=== PATIENT | female | born 1960 | race Caucasian/White ===

== ENCOUNTER 2017-03-10 06:09 | Emergency (ER) | payer MEDICAID ==
[2017-03-10] MEDS ORDERED: ASPIRIN 81 MG CHEWABLE TABLET PO ONE (06:23)
--- NOTE | 2017-03-10 06:30 | Emergency Department Record ---
History of Present Illness - General Source: Patient Mode of Arrival: Ambulatory Limitations: No limitations - History of Present Illness Initial Comments: 56 yo female presents to ED for evaluation of chest pain symptoms that began approximately 4 hours ago. Patient reports that her pain symptoms are in the mid-chest, denies DALILA. Patient denies history of heart or lung problems, reports a history of HTN and DM. Patient reports that her last stress test was in 2012. MD Complaint: Chest pain Onset/Timin -: Hour(s) Onset: Awoke with symptoms, During rest Pain Location: Substernal Severity scale (1-10): 8 Consistency: Constant Improves With: Nothing Worsens With: Nothing Treatments Prior to Arrival: None - Related Data On Oral Contraceptives: No <JOIE MCKOY - Last Filed: 03/10/17 07:02> <Radha Byrne - Last Filed: 03/10/17 12:55> - General Chief Complaint: Chest Pain Stated Complaint: CHEST PAIN Time Seen by Provider: 03/10/17 06:22 - Related Data Home Medications Medication Instructions Recorded Confirmed Last Taken Metformin HCl [Metformin HCl] 500 mg PO BID 03/10/17 03/10/17 Unknown Pantoprazole Sodium [Protonix] 40 mg PO BID 03/10/17 03/10/17 Unknown Allergies Allergy/AdvReac Type Severity Reaction Status Date / Time Penicillins Allergy Unknown HIVES Unverified 11/12/15 19:53 cephalexin monohydrate AdvReac Mild NAUSEA AND Unverified 11/12/15 19:53 [From Keflex] VOMITING propoxyphene HCl AdvReac Mild NAUSEA AND Unverified 11/12/15 19:53 [From Darvon] VOMITING codeine AdvReac Unknown NAUSEA AND Unverified 11/12/15 19:53 VOMITING levofloxacin [From LEVAQUIN] AdvReac Unknown NAUSEA AND Unverified 11/12/15 19: 53 VOMITING Sulfa (Sulfonamide AdvReac Unknown ABDOMINAL Unverified 11/12/15 19:53 Antibiotics) PAIN Travel Screening - Travel/Exposure Within Last 30 Days Have you traveled within the last 30 days?: No <JOIE MCKOY - Last Filed: 03/10/17 07:02> Review of Systems Constitutional: Denies: Chills, Fever, Malaise, Night sweats Eyes: Denies: Eye discharge, Eye pain ENT: Denies: Congestion, Ear pain, Epistaxis Respiratory: Denies: Cough, Dyspnea Cardiovascular: Reports: Chest pain. Denies: Dyspnea on exertion Endocrine: Denies: Fatigue, Heat or cold intolerance Gastrointestinal: Denies: Abdominal pain, Nausea, Vomiting Genitourinary: Denies: Incontinence, Retention Musculoskeletal: Denies: Arthralgia, Back pain, Gout, Joint swelling Skin: Denies: Bruising, Change in color Neurological: Denies: Abnormal gait, Confusion, Headache, Seizure Psychiatric: Denies: Anxiety Hematological/Lymphatic: Denies: Anemia, Blood Clots <EANJOIE - Last Filed: 03/10/17 07:02> Past Medical History - SOCIAL HISTORY Smoking Status: Never smoker Alcohol Use: None Drug Use: None - RESPIRATORY Hx Respiratory Disorders: No - CARDIOVASCULAR Hx Cardio Disorders: Yes Hx Hypertension: Yes - NEURO Hx Neuro Disorders: No - GI Hx GI Disorders: Yes Hx Reflux: Yes - Hx Genitourinary Disorders: No - ENDOCRINE Hx Endocrine Disorders: Yes Hx Diabetes: Yes (DM2) - MUSCULOSKELETAL Hx Musculoskeletal Disorders: Yes Hx Arthritis: Yes - PSYCH Hx Psych Problems: No - HEMATOLOGY/ONCOLOGY Hx Hematology/Oncology Disorders: No <EANMIROSLAVAJOIE - Last Filed: 03/10/17 07:02> Family Medical History Any Significant Family History?: Yes Hx Cancer: Mother, Brother/Sister Hx Diabetes: Mother Hx HTN: Father, Mother, Brother/Sister <JOIE MCKOY - Last Filed: 03/10/17 07:02> Physical Exam - General General Appearance: Alert, Oriented x3, Cooperative, Mild distress Limitations: No limitations - Head Head exam: Atraumatic, Normocephalic, Normal inspection Head exam detail: negative: Abrasion, Contusion, Villareal's sign, General tenderness, Hematoma, Laceration - Eye Eye exam: Normal appearance. negative: Conjunctival injection, Periorbital swelling, Periorbital tenderness, Scleral icterus - ENT Ear exam: negative: Auricular hematoma, Auricular trauma Nasal Exam: negative: Active bleeding, Discharge, Dried blood, Foreign body Mouth exam: negative: Drooling, Laceration, Muffled voice, Tongue elevation - Neck Neck exam: Normal inspection. negative: Meningismus, Tenderness - Respiratory Respiratory exam: Normal lung sounds bilaterally. negative: Rales, Respiratory distress, Rhonchi, Stridor - Cardiovascular Cardiovascular Exam: Regular rate, Normal rhythm, Normal heart sounds - GI/Abdominal GI/Abdominal exam: Soft. negative: Rebound, Rigid, Tenderness - Rectal Rectal exam: Deferred - exam: Deferred - Extremities Extremities exam: Normal inspection. negative: Calf tenderness, Pedal edema, Tenderness - Back Back exam: Denies: CVA tenderness (R), CVA tenderness (L) - Neurological Neurological exam: Alert, Normal gait, Oriented X3 - Psychiatric Psychiatric exam: Normal affect, Normal mood - Skin Skin exam: Normal color. negative: Abrasion Type of lesion: negative: abrasion <JOIE MCKOY - Last Filed: 03/10/17 07:02> Course - Reevaluation(s) Reevaluation #1: 03/10/17 06:36 EKG: NSR 85 Normal axis, normal intervals Non-specific ST-T wave changes V1-V2 No significant change from 01/01/12 Reevaluation #2: 03/10/17 06:52 CXR: No acute process Reevaluation #3: 03/10/17 07:02 Labs reviewed and are grossly unremarkable for an acute process. <JOIE MCKOY - Last Filed: 03/10/17 07:02> Vital Signs 03/10/17 03/10/17 03/10/17 06:23 07:00 07:02 Temperature 98.2 F Pulse Rate 93 H Pulse Rate [ 88 Pulse Ox Probe] Respiratory 18 14 Rate Blood Pressure 119/73 124/64 [Left Arm] Pulse Ox 97 90 L 97 03/10/17 03/10/17 03/10/17 07:30 08:00 08:30 Temperature Pulse Rate Pulse Rate [ 80 84 84 Pulse Ox Probe] Respiratory 16 16 16 Rate Blood Pressure 107/48 112/54 111/52 [Left Arm] Pulse Ox 99 98 98 03/10/17 03/10/17 03/10/17 09:00 09:30 10:00 Temperature Pulse Rate Pulse Rate [ 98 H 86 86 Pulse Ox Probe] Respiratory 16 Rate Blood Pressure 126/55 111/51 95/48 [Left Arm] Pulse Ox 99 03/10/17 03/10/17 03/10/17 10:30 11:00 12:00 Temperature Pulse Rate Pulse Rate [ 86 89 81 Pulse Ox Probe] Respiratory 16 Rate Blood Pressure 109/55 118/56 111/58 [Left Arm] Pulse Ox - Reevaluation(s) Reevaluation #4: 03/10/17 12:51 pt did well . chest pain is gone. pt did have nausea and vomited once. pt d/w dr ortiz who is going to do a stress test this afternoon <Radha Byrne - Last Filed: 03/10/17 12:55> Medical Decision Making - Lab Data Result diagrams: 03/10/17 06:30 03/10/17 06:30 <JOIE MCKOY - Last Filed: 03/10/17 07:02> - Lab Data Result diagrams: 03/10/17 06:30 03/10/17 06:30 Lab Results 03/10/17 03/10/17 03/10/17 Range/Units 06:30 06:30 10:38 WBC 13.2 H (4.2-12.2) K/uL RBC 4.39 (3.80-5.40) M/uL Hgb 11.1 L (11.6-16.0) gm/dl Hct 35.1 (35.0-47.0) % MCV 80.0 L (81-97) fl MCH 25.2 L (27-33) pg MCHC 31.6 L (32-36) g/dl RDW 16.9 H (11.5-14.5) % Plt Count 483 H (130-400) K/uL MPV 8.9 (7.4-10.4) fl Neutrophils % 84.0 H (47-80) % Band Neutrophils % 0.0 (0-5) % Eosinophils % Not Reportable Basophils % Not Reportable Lymphocytes 8.0 L (16-45) % Monocytes 8.0 (0-9) % Basophils 0.0 (0-6) % Eosinophil Count 0.0 (0-6) % Sodium 141 (136-145) mmol/L Potassium 3.6 (3.4-4.5) mmol/L Chloride 98 (98-107) mmol/L Carbon Dioxide 28.0 (22-29) mmol/L Anion Gap 15.0 (7-16) BUN 24 H (6-20) mg/dL Creatinine 0.8 (0.5-0.9) mg/dL Estimated GFR > 60 mL/min Random Glucose 113 H (74-109) mg/dL Calcium 9.5 (8.6-10.0) mg/dL Total Bilirubin 0.30 (0.2-1.0) mg/dL AST 24 (10.0-35.0) U/L ALT 17 (<33) U/L Alkaline Phosphatase 77 (35-104) U/L Creatine Kinase 60 (26-192) U/L CK-MB (CK-2) 1.1 (<3.77) ng/mL Troponin T < 0.010 < 0.010 (0-0.010) ng/mL Total Protein 7.5 (6.6-8.7) g/dL Albumin 4.3 (4.0-5.0) g/dL Globulin 3.2 (1.4-4.8) gm/dL Albumin/Globulin Ratio 1.3 (1.1-1.8) <Radha Byrne - Last Filed: 03/10/17 12:55> Disposition <JOIE MCKOY - Last Filed: 03/10/17 07:02> Disposition: Discharge <Radha Byrne Last Filed: 03/10/17 12:55> Clinical Impression: Chest pain Qualifiers: Chest pain type: unspecified Qualified Code(s): R07.9 - Chest pain, unspecified Disposition: Home, Self-Care Condition: (1) Good Instructions: Chest Pain (ED) Additional Instructions: go directly for stress test Forms: Patient Portal Access Quality - Blood Pressure Screening Does Patient Have Any of the Following: No Blood Pressure Classification: Normal BP Reading Systolic Measurement: 119 Diastolic Measurement: 73 Screening for High Blood Pressure: < Normal BP, F/U Not Required > [G8783] <JOIE MCKOY - Last Filed: 03/10/17 07:02> - Quality Measures Quality Measures: N/A - Blood Pressure Screening Does Patient Have Any of the Following: No Blood Pressure Classification: Normal BP Reading Systolic Measurement: 111 Diastolic Measurement: 58 Screening for High Blood Pressure: < Normal BP, F/U Not Required > [G8783] <Radha Byrne Last Filed: 03/10/17 12:55>
[2017-03-10] MEDS ORDERED: MAGNESIUM HYDROXIDE/AL HYDROX 30 ML, LIDOCAINE VISC 2% 200 MG PO ONE ×2 (06:31)
[2017-03-10 06:43] LABS: HEMATOCRIT 35.1 % (35.0-47.0); HEMOGLOBIN 11.1 gm/dl (11.6-16.0); MEAN CORPUSCULAR HGB CONC 31.6 g/dl (32-36); MEAN PLATELET VOLUME 8.9 fl (7.4-10.4); PLATELET COUNT 483 K/uL (130-400); RED BLOOD COUNT 4.39 M/uL (3.80-5.40); RED CELL DISTRIBUTION WIDTH 16.9 % (11.5-14.5); WHITE BLOOD COUNT W/O DIFF 13.2 K/uL (4.2-12.2)
[2017-03-10 06:45] LABS: MEAN CORPUSCULAR HEMOGLOBIN 25.2 pg (27-33)
[2017-03-10 06:53] LABS: BLOOD UREA NITROGEN 24 mg/dL (6-20); CREATININE 0.8 mg/dL (0.5-0.9); EST GLOMERULAR FILTRATION RATE > 60 mL/min
[2017-03-10 06:54] LABS: TOTAL PROTEIN 7.5 g/dL (6.6-8.7)
[2017-03-10 06:56] LABS: GLUCOSE,RANDOM 113 mg/dL (74-109)
[2017-03-10 06:59] LABS: ALB/GLOB RATIO 1.3 (1.1-1.8); ALBUMIN 4.3 g/dL (4.0-5.0); ALKALINE PHOSPHATASE 77 U/L (35-104); ALT/SGPT 17 U/L (<33); AST/SGOT 24 U/L (10.0-35.0)
--- NOTE | 2017-03-10 10:21 | RADIOLOGY REPORT ---
EXAM: CHEST, TWO VIEWS HISTORY: CHEST PAIN IN THE MID CHEST. TECHNIQUE: PA and lateral views of the chest were obtained. Comparison: Two view chest 01/01/12. FINDINGS: The heart size is normal. Mild torsion of the aorta. New postop change left shoulder with a reverse type left should arthroplasty. No definite acute infiltrate is seen and no pleural effusion or pneumothorax evident. Mild spurring in the spine. IMPRESSION: 1. REVERSE TYPE LEFT SHOULDER ARTHROPLASTY. 2. MILD TORSION OF THE AORTA. 3. NO ACUTE INFILTRATE IDENTIFIED. JOB NUMBER: [id number] [facility]
[2017-03-10] MEDS ORDERED: PROMETHAZINE HCL 12.5 MG in 0.9 % SODIUM CHLORIDE 100ML 100 ML IVPB ONE (10:48)
[2017-03-10 11:09] LABS: CREATINE PHOSPHOKINASE 60 U/L (26-192)
[2017-03-10 11:11] LABS: CKMB 1.1 ng/mL (<3.77)
[2017-03-10] MEDS ORDERED: 0.9 % SODIUM CHLORIDE 1,000 ML BAG IV ONE (11:38)
[2017-03-10] MEDS ORDERED: ONDANSETRON HCL IV 4 MG/2 ML VIAL IVP ONE (11:57)
--- NOTE | 2017-03-10 21:55 | Stress Test Report ---
DATE OF PROCEDURE: 03/10/2017 INTERPRETING PHYSICIAN: Angelina Moise M.D. PRIMARY CARE PHYSICIAN: Salvador Jeong D.O. REFERRING PHYSICIAN: Dr. Radha Byrne INDICATIONS: Chest pain. Ms. Garcia's resting vital signs show a blood pressure of 121/68 mmHg. Heart rate was 98 beats per minute. The patient's resting ECG shows sinus rhythm at 100 beats per minute with diffuse T-wave inversion involving the inferior leads as well as the lateral precordial leads. The patient was exercised on a motorized treadmill using a standard Geovanni protocol for a total of 3 minutes and 41 seconds achieving a maximum heart rate of 151 beats per minute, which is 92% of the maximum predicted heart rate for her age. The patient's maximum blood pressure was 130/52 mmHg. The patient's ECG during the stress test showed improvement as compared to baseline and no significant ST or T-wave changes were identified. No arrhythmia seen either. IMPRESSION: 1. NORMAL ECG RESPONSE TO EXERCISE STRESS WHILE ACHIEVING 5 METS OF WORKLOAD. 2. POOR EXERCISE CAPACITY FOR AGE. JOB NUMBER: [id number] [facility]
== END 2017-03-10 14:37 | disposition home or self-care (01) ==
LOC: ER 06:09
DX: R07.2 Precordial pain (principal); R11.2 Nausea with vomiting, unspecified; I10 Essential (primary) hypertension; E11.9 Type 2 diabetes mellitus without complications; Z79.84 Long term (current) use of oral hypoglycemic drugs
CPT/HCPCS: 99284 ×2; 96374; 96375; 82550; 82553; 80053; 84484; 85027; 71046; 93005; 93017; 93010; J2405; J2550; J7030

== ENCOUNTER 2017-11-08 16:13 | Emergency (ER) | payer OTHER ==
--- NOTE | 2017-11-08 17:03 | Emergency Department Record ---
History of Present Illness - General Chief complaint: Extremity Problem Stated complaint: FALL RT ARM AND LEG PAIN Time Seen by Provider: 11/08/17 17:03 Source: Patient, RN notes reviewed Mode of Arrival: Ambulatory - History of Present Illness Initial comments: fall yesterday am and injuried the right forearm and right knee and right ankle Onset/Timin -: Days(s) Location: Right, Ankle, Elbow, Forearm, Knee Improves with: Nothing Worsens with: Nothing Associated Symptoms: Denies other symptoms - Related Data Home Medications Medication Instructions Recorded Confirmed Last Taken Atorvastatin Calcium [Lipitor] 10 mg PO QHS 11/08/17 11/08/17 11/07/17 Esomeprazole Magnesium [Nexium] 40 mg PO DAILY 11/08/17 11/08/17 11/07/17 Previous Rx's Medication Instructions Recorded Hydrocodone/Acetaminophen [Almont 1 each PO Q6HR #10 tablet 11/08/17 5-325 Tablet] Allergies Allergy/AdvReac Type Severity Reaction Status Date / Time Penicillins Allergy Unknown HIVES Verified 11/08/17 16:47 cephalexin monohydrate AdvReac Mild NAUSEA AND Verified 11/08/17 16:47 [From Keflex] VOMITING propoxyphene HCl AdvReac Mild NAUSEA AND Verified 11/08/17 16:47 [From Darvon] VOMITING codeine AdvReac Unknown NAUSEA AND Verified 11/08/17 16:47 VOMITING levofloxacin [From LEVAQUIN] AdvReac Unknown NAUSEA AND Verified 11/08/17 16:47 VOMITING Sulfa (Sulfonamide AdvReac Unknown ABDOMINAL Verified 11/08/17 16:47 Antibiotics) PAIN Travel Screening - Travel/Exposure Within Last 30 Days Have you traveled within the last 30 days?: No - Travel/Exposure Within Last Year Have you traveled outside the [place] in the last year?: No - Additonal Travel Details Have you been exposed to anyone with a communicable illness?: No - Travel Symptoms Symptom Screening: None Review of Systems Reviewed: No additional complaints except as noted below Constitutional: Reports: As per HPI. Denies: Chills, Fever, Malaise, Night sweats, Weakness, Weight change Eyes: Reports: As per HPI. Denies: Eye discharge, Eye pain, Photophobia, Vision change ENT: Reports: As per HPI. Denies: Congestion, Dental pain, Ear pain, Epistaxis , Hearing loss, Throat pain Respiratory: Reports: As per HPI. Denies: Cough, Dyspnea, Hemoptysis, Stridor, Wheezes Cardiovascular: Reports: As per HPI. Denies: Arrhythmia, Chest pain, Dyspnea on exertion, Edema, Murmurs, Orthopnea, Palpitations, Paroxysmal nocturnal dyspnea, Rheumatic Fever, Syncope Endocrine: Reports: As per HPI. Denies: Fatigue, Heat or cold intolerance, Polydipsia, Polyuria Gastrointestinal: Reports: As per HPI. Denies: Abdominal pain, Constipation, Diarrhea, Hematemesis, Hematochezia, Melena, Nausea, Vomiting Genitourinary: Reports: As per HPI. Denies: Abnormal menses, Discharge, Dyspareunia, Dysuria, Frequency, Hematuria, Incontinence, Retention, Urgency Musculoskeletal: Reports: As per HPI, Other (pain in forearm knee and ankle right side). Denies: Arthralgia, Back pain, Gout, Joint swelling, Myalgia, Neck pain Skin: Reports: As per HPI. Denies: Bruising, Change in color, Change in hair/ nails, Lesions, Pruritus, Rash Neurological: Reports: As per HPI. Denies: Abnormal gait, Confusion, Headache, Numbness, Paresthesias, Seizure, Tingling, Tremors, Vertigo, Weakness Psychiatric: Reports: As per HPI. Denies: Anxiety, Auditory hallucinations, Depression, Homicidal thoughts, Suicidal thoughts, Visual hallucinations Hematological/Lymphatic: Reports: As per HPI. Denies: Anemia, Blood Clots, Easy bleeding, Easy bruising, Swollen glands Past Medical History - SOCIAL HISTORY Smoking Status: Never smoker Alcohol Use: None Drug Use: None - RESPIRATORY Hx Respiratory Disorders: No - CARDIOVASCULAR Hx Cardio Disorders: Yes Hx Hypertension: Yes - NEURO Hx Neuro Disorders: No - GI Hx GI Disorders: Yes Hx Reflux: Yes - Hx Genitourinary Disorders: No - ENDOCRINE Hx Endocrine Disorders: Yes Hx Diabetes: Yes (DM2) Hx Thyroid Disease: No - MUSCULOSKELETAL Hx Musculoskeletal Disorders: Yes Hx Arthritis: Yes - PSYCH Hx Psych Problems: No - HEMATOLOGY/ONCOLOGY Hx Hematology/Oncology Disorders: No Family Medical History Any Significant Family History?: No Hx Cancer: Mother, Brother/Sister Hx Diabetes: Mother Hx HTN: Father, Mother, Brother/Sister Physical Exam - General General Appearance: Alert, Oriented x3, Cooperative, No acute distress - Head Head exam: Normal inspection - Eye Eye exam: Normal appearance, PERRL Pupils: Normal accommodation - ENT ENT exam: Normal exam, Mucous membranes moist, Normal external ear exam, Normal orophraynx, TM's normal bilaterally Ear exam: Normal external inspection. negative: External canal tenderness Nasal Exam: Normal inspection. negative: Discharge, Sinus tenderness Mouth exam: Normal external inspection, Tongue normal Teeth exam: Normal inspection. negative: Dental caries Throat exam: Normal inspection. negative: Tonsillar erythema, Tonsillar exudate - Neck Neck exam: Normal inspection, Full ROM. negative: Tenderness - Respiratory Respiratory exam: Normal lung sounds bilaterally. negative: Respiratory distress - Cardiovascular Cardiovascular Exam: Regular rate, Normal rhythm, Normal heart sounds - GI/Abdominal GI/Abdominal exam: Soft, Normal bowel sounds. negative: Tenderness - Rectal Rectal exam: Deferred - exam: Deferred - Extremities Extremities exam: Normal inspection, Full ROM, Normal capillary refill. negative: Tenderness - Back Back exam: Reports: Normal inspection, Full ROM. Denies: Muscle spasm, Rash noted, Tenderness - Neurological Neurological exam: Alert, Normal gait, Oriented X3, Reflexes normal - Psychiatric Psychiatric exam: Normal affect, Normal mood - Skin Skin exam: Dry, Intact, Normal color, Warm Course Vital Signs 11/08/17 16:37 Temperature 98.3 F Pulse Rate 84 Respiratory 18 Rate Blood Pressure 136/76 Pulse Ox 99 Medical Decision Making - Data Complexity MDM Data: X-Ray Ordered and/or Reviewed (no fracture of the forearm, knee or ankle) Disposition Clinical Impression: Ankle sprain Qualifiers: Encounter type: initial encounter Involved ligament of ankle: anterior talofibular ligament Laterality: right Qualified Code(s): S93.491A - Sprain of other ligament of right ankle, initial encounter Contusion, forearm Qualifiers: Encounter type: initial encounter Laterality: right Qualified Code(s): S50.11XA - Contusion of right forearm, initial encounter Contusion, knee Qualifiers: Encounter type: initial encounter Laterality: right Qualified Code(s): S80.01XA - Contusion of right knee, initial encounter Disposition: Home, Self-Care Condition: (1) Good Instructions: Ankle Strain (ED), Contusion in Adults (ED) Additional Instructions: follow up with Dr. Jeong in 5 days crutches Prescriptions: Hydrocodone/Acetaminophen [Almont 5-325 Tablet] 1 each PO Q6HR #10 tablet Forms: Patient Portal Access Time of Disposition: 18:34 Quality - Quality Measures Quality Measures: N/A - Blood Pressure Screening Does Patient Have Any of the Following: No Blood Pressure Classification: Pre-Hypertensive BP Reading Systolic Measurement: 136 Diastolic Measurement: 76 Screening for High Blood Pressure: < Pre-Hypertensive BP, F/U Documented > [ G8950] Pre-Hypertensive Follow-up Interventions: Referral to alternative/primary care provider.
[2017-11-08] MEDS ORDERED: HYDROCODONE/APAP 5/325MG TABLET PO ONE (18:30)
--- NOTE | 2017-11-12 07:26 | RADIOLOGY REPORT ---
EXAM: RIGHT ANKLE HISTORY: PATIENT FELL YESTERDAY TWISTING ANKLE WITH PAIN RIGHT ANKLE LATERALLY. TECHNIQUE: Three views of the right ankle were obtained. Comparison: None. Encounter: Initial. FINDINGS: Prominent posterior calcaneal spur. No definite fracture or dislocation of the ankle identified. No prominent focal soft tissue swelling. There may be some mild soft tissue swelling medially. IMPRESSION: 1. PERHAPS SOME MILD SOFT TISSUE SWELLING MEDIALLY. 2. NO DEFINITE FRACTURE OF THE RIGHT ANKLE IDENTIFIED. 3. POSTERIOR CALCANEAL SPUR. JOB NUMBER: [id number] [facility]
--- NOTE | 2017-11-12 07:30 | RADIOLOGY REPORT ---
EXAM: RIGHT KNEE HISTORY: PATIENT FELL WITH RIGHT KNEE PAIN. TECHNIQUE: Three views of the right knee were obtained. Comparison: No prior right knee series with which to compare. Encounter: Initial. FINDINGS: The patient is postop right TKA. The components appear in good position. There are some small calcifications about the right knee including a couple centrally as seen on the AP view. These are nonspecific and may be chronic in nature, but comparison with old films would be very useful in this regard. No definite joint effusion seen and no dislocation evident. IMPRESSION: 1. POSTOP RIGHT TKA. 2. SOME SMALL CALCIFIC DENSITIES ABOUT THE RIGHT KNEE ARE NONSPECIFIC AND RECOMMEND COMPARISON WITH OLD FILMS. JOB NUMBER: [id number] [facility]
--- NOTE | 2017-11-12 07:31 | RADIOLOGY REPORT ---
EXAM: RIGHT FOREARM HISTORY: PATIENT FELL WITH RIGHT FOREARM PAIN. TECHNIQUE: AP and lateral views of the right forearm were obtained. Comparison: None. Encounter: Initial. FINDINGS: No definite fracture of the right forearm identified. There is probably some mild soft tissue swelling. IMPRESSION: NO FRACTURE OF THE RIGHT FOREARM IDENTIFIED. JOB NUMBER: [id number] [facility]
== END 2017-11-08 18:53 | disposition home or self-care (01) ==
LOC: ER 16:13
DX: S93.491A Sprain of other ligament of right ankle, initial encounter (principal); S50.11XA Contusion of right forearm, initial encounter; S80.01XA Contusion of right knee, initial encounter; I10 Essential (primary) hypertension; E11.9 Type 2 diabetes mellitus without complications; X50.0XXA Overexertion from strenuous movement or load, initial encounter
CPT/HCPCS: 99283; 99284